=== PATIENT | female | born 1990 | race Two or more races ===

== ENCOUNTER 2017-05-09 11:36 | Emergency (ER) | payer MEDICAID, OTHER ==
[~2017-05-09] VITALS: Ht 152.4 cm; Wt 77.0 kg
[2017-05-09] MEDS ORDERED: METOCLOPRAMIDE 5 MG/ML, 2ML ONE (12:25)
[2017-05-09] MEDS ORDERED: DIPHENHYDRAMINE 50 MG/ML, 1ML ONE (12:25)
[2017-05-09] MEDS ORDERED: METOCLOPRAMIDE 5 MG/ML, 2ML IVPush ONE (12:30)
[2017-05-09] MEDS ORDERED: DIPHENHYDRAMINE 50 MG/ML, 1ML IVPush ONE (12:30)
[2017-05-09] MEDS ORDERED: SODIUM CHLORIDE FLUSH 10ML SYR IVF ONE (12:30)
[2017-05-09] MEDS ORDERED: SODIUM CHLORIDE 0.9% 1,000ML IVBOLUS ONE (12:30)
[2017-05-09 12:42] LABS: BLOOD UREA NITROGEN 8 mg/dL (7-18)
[2017-05-09 13:53] VITALS: BP 106/64
== END 2017-05-09 13:58 | disposition home or self-care (01) ==
LOC: ED 12:07
DX: G43.C0 Periodic headache syndromes in child or adult, not intractable (principal); R42 Dizziness and giddiness; Z88.5 Allergy status to narcotic agent
CPT/HCPCS: 36415; 80048; 82040; 84703; 85025; 93005; 96361; 96374; 96375; 99285; J1200; J2765; J7030

== ENCOUNTER 2017-09-06 13:37 | Emergency (ER) | payer MEDICAID, OTHER ==
[~2017-09-06] VITALS: Ht 154.9 cm; Wt 78.4 kg
[2017-09-06] MEDS ORDERED: SODIUM CHLORIDE 0.9% 1,000 ML IV ONE (14:24)
[2017-09-06] MEDS ORDERED: DIPHENHYDRAMINE 50 MG/ML, 1ML IVPush ONE (14:30)
[2017-09-06] MEDS ORDERED: METOCLOPRAMIDE 5 MG/ML, 2ML IVPush ONE (14:30)
[2017-09-06] MEDS ORDERED: KETOROLAC 30 MG/1 ML IVPush ONE (14:30)
[2017-09-06] MEDS ORDERED: SODIUM CHLORIDE FLUSH 10ML SYR IVF ONE (14:30)
[2017-09-06] MEDS ORDERED: DIPHENHYDRAMINE 50 MG/ML, 1ML ONE (14:43)
[2017-09-06] MEDS ORDERED: METOCLOPRAMIDE 5 MG/ML, 2ML ONE (14:43)
[2017-09-06] MEDS ORDERED: KETOROLAC 30 MG/1 ML ONE (14:43)
[2017-09-06 17:25] VITALS: BP 98/58
== END 2017-09-06 17:28 | disposition home or self-care (01) ==
LOC: ED 15:43
DX: O99.352 Diseases of the nervous system complicating pregnancy, second trimester (principal); G43.909 Migraine, unspecified, not intractable, without status migrainosus; Z3A.17 17 weeks gestation of pregnancy
CPT/HCPCS: 93005; 96361; 96374; 96375; 99285; J1200; J1885; J2765; J7030

== ENCOUNTER 2017-12-07 15:21 | Emergency (ER) | payer MEDICAID ==
[~2017-12-07] VITALS: Ht 154.9 cm; Wt 87.0 kg
[2017-12-07 16:59] VITALS: BP 117/78
== END 2017-12-07 17:03 | disposition home or self-care (01) ==
LOC: ED 16:47
DX: K02.9 Dental caries, unspecified (principal); K04.7 Periapical abscess without sinus; G43.909 Migraine, unspecified, not intractable, without status migrainosus
CPT/HCPCS: 99283